=== PATIENT | female | born 1955 | race Caucasian/White ===

== ENCOUNTER 2017-01-23 07:49 | Emergency (ER) | payer MEDICARE, MEDICAID ==
[~2017-01-23] VITALS: Ht 170.2 cm; Wt 77.4 kg
[~2017-01-23 07:49] MED LIST: ALPR1TAB7 PO; CYCL-375 PO; METO10TA3 PO; OMEP40CA52 PO; OXYC-533 PO; OXYC1TAB13 PO; RANI150T7 PO; TIZA4TAB4 PO
--- OUTSIDE RECORDS SUMMARY | 2017-01-23 07:54 | XMS REPORT | Continuity of Care Document ---
Author Author [facility] Organization [facility] Address Unknown Phone Unavailable Support Name Relationship Address Phone SHABBIR FENG DO Caregiver [address] [place] [address] Unavailable ZEV REDDING Caregiver [address] [place] [address] Unavailable MADELIN ANTOINE Next Of Kin [place], [place] [phone] [id number] Insurance Providers Guarantor ThadYves Alissa Address [address] [place] [address] Email DENIED 12-08-16 Payer [facility] Policy Number [id number] Subscriber's Name Yves Oneil Relationship 18 Self Effective Date 16 Expiration Date 17 Payer Medicare Policy Number [id number] Subscriber's Name Yves Oneil Relationship 18 Self Chief Complaint and Reason for Visit Chief Complaint Headache Reason for Visit Head ache Problems Active Problems Medical Problem Onset Date Status Anxiety Unknown Acute Atypical chest pain Unknown Acute Back pain Unknown Acute Back pain Unknown Acute Bilateral hand pain Unknown Acute Bronchitis Unknown Acute Bronchitis Unknown Acute Bronchitis Unknown Acute Cephalgia Unknown Acute Epigastric abdominal pain Unknown Acute Finger Pain Unknown Acute Headache Consistent with Migraine Unknown Acute Headache Consistent with Migraine Unknown Acute Headache Consistent with Migraine Unknown Acute Left against medical advice Unknown Acute Left shoulder pain Unknown Acute MIGRAINE Unknown Acute Patient left without being seen Unknown Acute Pneumonia Unknown Acute Pyroderma ganrenosum Unknown Acute Tobacco abuse Unknown Acute SAE III (vulvar intraepithelial neoplasia III) Unknown Acute Past Problems Medical Problem Onset Date Contact dermatitis Unknown Drug-seeking behavior Unknown Dyspnea Unknown Esophageal spasm Unknown GERD (gastroesophageal reflux disease) Unknown Head ache Unknown Hypokalemia Unknown Migraine Unknown Stress headache Unknown Medications Current Home Medications Medication Dose Units Route Directions Days Qty Instructions Start Date Alprazolam 1 Mg Tablet 1 Mg Oral Three Times A Day as needed for Anxiety 06/13/14 Cyclobenzaprine Hcl 10 Mg Tablet 10 Mg Oral Three Times A Day as needed for Muscle Spasm 5 Days 15 Tablet 12/08/16 Metoclopramide Hcl 10 Mg Tablet 10 Mg Oral Four Times Daily as needed for Nausea &/Or Vomiting 12/08/16 Omeprazole 40 Mg Capsule. 40 Mg Oral Daily 12/08/16 Oxycodone Hcl/Acetaminophen (Oxycodone-Acetaminophen 10-325) 1 Each Tablet 1 Tab Oral Three Times A Day as needed for Pain 06/13/14 Oxycodone Hcl/Acetaminophen (Percocet 10-325 Mg Tablet) 10-325 Tablet 1 Tab Oral Every 4 Hours as needed for Pain 3 Days 18 Tablet Take 1 tablet, by mouth, every 4 hours as needed for pain. 12/08/16 Ranitidine Hcl 150 Mg Tablet 150 Mg Oral Bedtime 12/08/16 Tizanidine Hcl 4 Mg Tablet 4 Mg Oral Three Times A Day 12/08/16 Past Home Medications Medication Directions Ordered Status Albuterol Sulfate (Ventolin Hfa 90 Mcg/Actuation) 18 Gm Hfa.aer.ad, 1 Puff Inhalation Daily as needed for Prn Orders 06/11/16 Discontinued Cholecalciferol (Vitamin D) 1,000 Unit Tablet, 1000 Unit Oral Weekly Discontinued Clindamycin Hcl 300 Mg Capsule, 300 Mg Oral Three Times A Day 08/21/11 Discontinued Ergocalciferol (Vitamin D) 50,000 Unit Capsule, 07747 Unit Oral Weekly Discontinued Esomeprazole Mag Trihydrate (Nexium) 40 Mg Capsule., 40 Mg Oral Daily 02/06 Discontinued Estrogen,Con/M-Progest Acet (Prempro 0.3 Mg/1.5 Mg Tablet) 1 Tab Tablet, 1 Tab Oral Daily 02/06/10 Discontinued Hydrocodone Bit/Acetaminophen (Lortab 10) 1 Udtab Tablet, 1 Udtab Oral Four Times Daily 02/06/10 Discontinued Meloxicam (Mobic) 7.5 Mg Tablet, 7.5 Mg Oral Daily 06/13/12 Discontinued Nortriptyline Hcl 10 Mg Capsule, 10 Mg Oral Daily 03/25/09 Discontinued Oxycodone Hcl (Oxycontin) 10 Mg Tab.sr.12h, 10 Mg Oral Every 4-6 Hours as needed 06/13/12 Discontinued Prednisone 20 Mg Tablet, 20 Mg Oral Daily 10/09/11 Discontinued Prednisone 10 Mg Tablet, 10 Mg Oral Daily 08/21/11 Discontinued Promethazine Hcl (Phenergan) 25 Mg Tablet, 25 Mg Oral as needed 06/13/12 Discontinued Tramadol Hcl 50 Mg Tablet, 50 Mg Oral As Needed 09/17/12 Discontinued Verapamil Hcl 80 Mg Tablet, 80 Mg Oral Three Times A Day 09/17/12 Discontinued Social History Social History Problem Response Recorded Date/Time Onset Date Status Hx Substance Use No 12/08/2016 5:03pm Not Applicable Not Applicable Hx Alcohol Use No 12/08/2016 5:03pm Not Applicable Not Applicable Has the pt used tobacco in the last 12 months Yes 06/11/2015 3:28pm Not Applicable Not Applicable Tobacco Usage smoke 01/31/2016 6:44pm Not Applicable Not Applicable Query Response Start Date Stop Date Smoking Status Current every day smoker Hospital Discharge Instructions No hospital discharge instructions. Plan of Care Discharge Date 12/08/16 5:54pm Disposition 01 DISCHARGED HOME, SELF-CARE Condition at Discharge Improved Instructions/Education Provided General Headache (ED) Prescriptions See Medication Section Referrals ZEV REDDING Order Date: 2 Days Address: [address] [place] [phone] Note: Care Plan and Goals Physician Care Plan Problem: Headache Goal: Follow up with primary care provider Instructions: Take medications and follow care plan as discussed/written Functional Status No functional status results. Allergies, Adverse Reactions, Alerts Allergen Type Severity Reaction Status Last Updated diphenhydramine HCl Adverse Reaction Unknown "INSIDES GO CRAZY" Active 11/25 Dkyzyox-Hoz-Gts Reductase Inhibitor Allergy Unknown Active 12/08/16 Aspirin Allergy Unknown Active 12/08/16 Pseudoephedrine Allergy Unknown Active 12/08/16 Ibuprofen Adverse Reaction Unknown STOMACH UPSET Active 12/08/16 Dextromethorphan Allergy Unknown Active 12/08/16 Nalbuphine Allergy Unknown Active 12/08/16 Diphenhydramine Allergy Mild DRIVES ME NUTS Active 12/08/16 Doxylamine Allergy Unknown Active 12/08/16 Ketorolac Allergy Unknown "I DON'T KNOW" Active 12/08/16 Immunizations Query Response on File Recorded Date/Time Hx Influenza Vaccination No 07/04/15 4:05pm Hx Pneumococcal Vaccination No 07/04/15 4:05pm Hx Tetanus, Diptheria, Pertussis NA - NO SKIN DISRUPTIONS 07/04/15 4:05pm Hx Influenza Vaccination No 07/04/15 4:05pm Hx Tetanus, Diptheria, Pertussis NA - NO SKIN DISRUPTIONS 07/04/15 4:05pm DTaP Vaccine History UNKNOWN 12/08/16 5:03pm Influenza Vaccine Hx NOT REC'D 12/08/16 5:03pm Tdap Vaccine Hx UNKNOWN 01/31/16 6:29pm Vital Signs Acute Vital Signs Vital Response Date/Time Temperature (Fahrenheit) 97.9 deg F (96.8 - 99.1) 12/08/2016 5:54pm Temperature (Calculated Celsius) 36.33838 degrees C (36.0 - 37.3) 12/08/2016 5:54pm Pulse Rate (adult) 66 bpm (60 - 100) 12/08/2016 5:54pm Respiratory Rate 28 breaths/min (10 - 20) 12/08/2016 5:54pm O2 Sat by Pulse Oximetry 96 % (90 - 100) 12/08/2016 5:54pm Blood Pressure 153/75 mm Hg 12/08/2016 5:54pm Blood Pressure 153/75 mm Hg 12/08/2016 5:54pm Height (Feet) 5 feet 12/08/2016 4:03pm Height (Inches) 7.00 inches 12/08/2016 4:03pm Weight (Kilograms) 77.400 kg 12/08/2016 4:03pm Body Mass Index (BMI) 26.0 12/08/2016 4:03pm Results Laboratory Results Test Name Result Units Flags Reference Collection Date/Time Result Date/ Time Comments White Blood Count 7.5 T/MM3 4.5-11.0 10/05/2016 2:25am 10/05/2016 2: 38am Red Blood Count 4.08 M/MM3 4.00-5.20 10/05/2016 2:25am 10/05/2016 2: 38am Hemoglobin 13.6 GM/DL 12-16 10/05/2016 2:25am 10/05/2016 2:38am Hematocrit 40.2 % 36-46 10/05/2016 2:25am 10/05/2016 2:38am Mean Corpuscular Volume 98.5 UM3 80-100 10/05/2016 2:25am 10/05/2016 2: 38am Mean Corpuscular Hemoglobin 33.3 UUG 26-34 10/05/2016 2:2015 2:38am Mean Corpuscular Hemoglobin Concent 33.8 GM/DL 31-37 10/05/2016 2:10/05/2016 2:38am RDW Standard Deviation 44.4 FL 36.9-50.2 10/05/2016 2:10/05/2016 2 :38am Platelet Count 280 T/MM3 130-400 10/05/2016 2:10/05/2016 2:38am Mean Platelet Volume 10.7 UM3 9.4-12.4 10/05/2016 2:10/05/2016 2: 38am Neutrophils (%) (Auto) 53.5 % 33-66 10/05/2016 2:10/05/2016 2: 38am Lymphocytes (%) (Auto) 36.6 % 23-45 10/05/2016 2:10/05/2016 2: 38am Monocytes (%) (Auto) 7.4 % 0-9.0 10/05/2016 2:10/05/2016 2:38am Eosinophils (%) (Auto) 2.1 % 0-4 10/05/2016 2:10/05/2016 2:38am Basophils (%) (Auto) 0.3 % 0-2 10/05/2016 2:10/05/2016 2:38am Immature Granulocyte % (Auto) 0.1 % 0.0-0.5 10/05/2016 2:2015 2:38am Absolute Neutrophils (auto) 4.0 T/MM3 1.8-7.7 10/05/2016 2:2015 2:38am Absolute Lymphocytes (auto) 2.8 T/MM3 1-4.8 10/05/2016 2:2015 2:38am Absolute Monocytes (auto) 0.6 T/MM3 0-0.8 10/05/2016 2:10/05/2016 2:38am Absolute Eosinophils (auto) 0.2 T/MM3 0-0.5 10/05/2016 2:2015 2:38am Absolute Basophils (auto) 0.0 T/MM3 0-0.2 10/05/2016 2:10/05/2016 2:38am Absolute Immature Granulocyte (auto 0.01 T/MM3 0.00-0.03 10/05/2016 2: 2510/05/2016 2:38am Icterus Index < 2 0-7 10/05/2016 2:2510/05/2016 2:44am Chemistry Specimen Hemolysis < 15 0-25 10/05/2016 2:2510/05/2016 2 :44am 0-25: Specimen Exhibited No Hemolysis. Turbidity < 20 0-20 10/05/2016 2:2510/05/2016 2:44am Sodium Level 144 MEQ/L 134-144 10/05/2016 2:2510/05/2016 2:44am Potassium Level 2.8 MEQ/L *L 3.6-5 10/05/2016 2:10/05/2016 2:56am Chloride Level 105 MEQ/L 98-107 10/05/2016 2:2510/05/2016 2:44am Carbon Dioxide Level 25 MEQ/L 22-30 10/05/2016 2:10/05/2016 2: 44am Anion Gap 14 MEQ/L 5-15 10/05/2016 2:2510/05/2016 2:44am Blood Urea Nitrogen 12.0 MG/DL 7-17 10/05/2016 2:10/05/2016 2: 44am Creatinine 0.7 MG/DL 0.7-1.2 10/05/2016 2:10/05/2016 2:44am BUN/Creatinine Ratio 17 RATIO 6-26 10/05/2016 2:10/05/2016 2:44am Glomerular Filtration Rate Calc 85 10/05/2016 2:10/05/2016 2: 44am Glucose Level 108 MG/DL 65-110 10/05/2016 2:2510/05/2016 2:44am Calculated Osmolality 278 MOSM/KG 261-280 10/05/2016 2:10/05/2016 2:44am Calcium Level 9.5 MG/DL 8.4-10.2 10/05/2016 2:2510/05/2016 2:44am Total Bilirubin 0.40 MG/DL 0.20-1.30 10/05/2016 2:2510/05/2016 2: 44am Alkaline Phosphatase 90 U/L 38-126 10/05/2016 2:25am 10/05/2016 2:44am Total Protein 7.1 G/DL 6.3-8.2 10/05/2016 2:25am 10/05/2016 2:44am Albumin 4.2 G/DL 3.5-5.0 10/05/2016 2:25am 10/05/2016 2:44am Globulin 2.9 G/DL 2.4-3.6 10/05/2016 2:25am 10/05/2016 2:44am Albumin/Globulin Ratio 1.4 RATIO 1.1-2.2 10/05/2016 2:25am 10/05/2016 2 :44am Aspartate Amino Transf (AST/SGOT) 20 U/L 14-36 10/05/2016 2:25am 2015 2:44am Alanine Aminotransferase (ALT/SGPT) 25 U/L 9-52 10/05/2016 2:25am 10/05 2:44am Troponin I < 0.012 ng/ml 0-0.12 10/05/2016 2:25am 10/05/2016 2:55am Troponin values with a difference of 55% increase from orginal troponin value represent a true biological DELTA value. (%increase Calc=Orginal Troponin value, divided by subsequent Troponin value, multiplied by 100) Lipase 46 U/L 23-300 10/05/2016 2:25am 10/05/2016 2:44am Name: YVES ONEIL Unit #: [id number] : 1955 Sex: F Admit Date: Loc / Svc: ED Discharge Date: DIAGNOSTIC IMAGING REPORT Report #: [id number] [facility] MAYA Roberts Indication: ITS.REASON: Neck pain for two days, no reported injury PROCEDURE: CT CERVICAL SPINE W/O CONTRAST: Encounter: Initial Comparison: None Technique: Axial CT images through the cervical spine were performed without contrast. Coronal and sagittal reformatted images were also obtained. Automated Exposure Control and Iterative Reconstruction dose reducing techniques were utilized. FINDINGS: The alignment of the cervical spine is normal. Multilevel degenerative changes are present. There is no evidence of acute fracture or subluxation of the cervical spine. The facet joints are well aligned with preservation of the intervertebral disk and facet joints. The atlantoaxial articulation, dens, and upper cervical spine demonstrate no subluxation. There is no evidence of significant spinal stenosis, foraminal compromise, or significant disk herniation. The paraspinal soft tissues and spinal canal appear unremarkable. IMPRESSION: No acute traumatic abnormality of the cervical spine. . Procedures Procedure Status Date Provider(s) Emergency dept visit Completed 09/18/16 Chest x-ray 1 view frontal Completed 10/05/16 Comprehen metabolic panel Completed 10/05/16 Assay of lipase Completed 10/05/16 Assay of troponin quant Completed 10/05/16 Complete cbc w/auto diff wbc Completed 10/05/16 Electrocardiogram tracing Completed 10/05/16 Hydrate iv infusion add-on Completed 10/05/16 Hydrate iv infusion add-on Completed 10/05/16 Ther/proph/diag inj iv push Completed 10/05/16 Tx/pro/dx inj new drug addon Completed 10/05/16 Emergency dept visit Completed 10/05/16 [id number] ITEM OR SERVICE Completed 10/05/16 184200"INJECTION, HYDROMORPHONE, UP TO 4 MG" Completed 10/05/16 [id number]"INJECTION, METOCLOPRAMIDE HCL, UP TO 10 MG" Completed 10/05/16 779474"INFUSION, NORMAL SALINE SOLUTION , 1000 CC" Completed 10/05/16 Emergency dept visit Completed 11/09/16 Encounters Encounter Location Arrival/Admit Date Discharge/Depart Date Attending Provider Departed Emergency Room [facility] 12/08/16 3:53pm 12/08/16 5: 54pm SHABBIR FENG DO Departed Emergency Room [facility] 11/09/16 6:52pm 11/09/16 9: 05pm VINNY SINGH DO Departed Emergency Room [facility] 10/05/16 1:27am 10/05/16 4: 37am ZANE AMADO MD Departed Emergency Room [facility] 09/18/16 11:02am 09/18/16 11: 53am FEBRUARYVINNY DO Recent Diagnosis
[2017-01-23 08:11] VITALS: Ht 170.2 cm; Wt 77.4 kg
--- NOTE | 2017-01-23 08:35 | ERPDOC ---
Departure Disposition Decision Date: Jan 23, 2017 Disposition Decision Time: 12:55 Disposition: 01 DISCHARGED HOME, SELF-CARE Impression Impression Impression: Primary Impression: Epigastric abdominal pain Severity: Moderate Condition: Stable Seen By: Physician only Referrals: ZEV REDDING (Family) Patient Instructions: Abdominal Pain (ED) Problems/Meds/Labs Reviewed?: Yes Medications reviewed and manag: Yes Additional Instructions: Follow-up with your primary medical physician for further evaluation Follow up care ordered?: Yes Mental Status: Alert, Oriented HPI - Abdominal Pain General Chief Complaint: Abdominal Pain Stated Complaint: ABD PAIN Time Seen by Provider: 08:33 Source: patient History/Exam Limitations: no limitations HPI - Abdominal Pain Initial Comments Patient is a 61-year-old female presents emergency room for evaluation of abdominal pain. Patient states she started having epigastric abdominal pain yesterday quickly ramped up to 8 or 9 out of 10, patient states she was evaluated by her primary medical physician a month ago for gallbladder issues including CT scan and what sounds like a hiatus scan were all negative. Patient is taking Prilosec and other srbw-ahw-hwvgxzr medications. Despite that patient developed severe abdominal pain so decided today to present to the ER for evaluation. Occurred At: home Onset: Gradual, Getting worse Duration: 12-24 hrs Pain Scale: Now & Worst: 9/10 Location: epigastric Radiation: back Allergies: Coded Allergies: diphenhydramine (Verified Allergy, Mild, DRIVES ME NUTS, 01/23/17) Ysfvkhy-Xld-Qzd Reductase Inhibitor (Verified Allergy, Unknown, 01/23/17) aspirin (Verified Allergy, Unknown, 01/23/17) dextromethorphan (Verified Allergy, Unknown, 01/23/17) doxylamine (Verified Allergy, Unknown, 01/23/17) ketorolac (Verified Allergy, Unknown, "I DON'T KNOW", 01/23/17) nalbuphine (Verified Allergy, Unknown, 01/23/17) pseudoephedrine (Verified Allergy, Unknown, 01/23/17) diphenhydramine HCl (Verified Adverse Reaction, Unknown, "INSIDES GO CRAZY ", 01/23/17) ibuprofen (Verified Adverse Reaction, Unknown, STOMACH UPSET, 01/23/17) Past History Patient Surgical History Ovarian Cyst removal hernia repair hysterectomy Appendectomy Past Medical History Metabolic: hypercholesterolemia Respiratory: pneumonia GI: GERD Neurological: migraines Musculoskeletal: back pain Psychological: anxiety, bipolar Surgical History General: appendix, hernia Reproductive/: , hysterectomy Family History Family PMH: FOUND: [place], diabetes, hypertension Vaccines Hx Influenza Vaccination: No Hx Pneumococcal Vaccination: No Social History Does patient use chewing tobac: No Second Hand Exposure: No Substance Use Type: does not use Alcohol Intake: none Marital Status: Sexuality: male partner Household Members: significant other Review of Systems Constitutional Constitutional: appetite decrease, DENIES: chills, dizziness, fever, weakness Eyes Vision: DENIES: double vision, loss of visual bey ENMT Sinuses: DENIES: congestion, rhinorrhea Mouth/Throat: DENIES: scratchy throat, sore throat Cardiovascular Cardiac: DENIES: chest pain, dyspnea on exertion Pulmonary Respiratory: DENIES: cough, dyspnea, sputum, tachypnea GI Upper Abdomen: nausea, pain, DENIES: vomiting Lower Abdomen: DENIES: constipation, diarrhea, pain General: DENIES: frequency, urgency Musculoskeletal General: DENIES: cramps, pain, weakness Integumentary Skin: DENIES: color change, itching, rash Endocrine Endocrine: DENIES: heat/cold intolerance Hematologic/Lymphatic Hematologic/Lymphatic: DENIES: anemia Physical Exam General General Nourishment: well nourished, well developed General Body Habitus: well groomed Vitals and Pain First Documented Vital Signs Date Time Temp Pulse Resp B/P Pulse Ox O2 Delivery O2 Flow Rate FiO2 01/23/17 08:11 97.9 68 18 188/108 98 Room Air Weight: Kilograms: 77.400 Height (feet): 5 Height (inches): 7.00 Triage Pain Scale: RN VS reviewed by Provider: Yes Eyes (brief) Eyes Brief: found: EOMI ENMT (brief) ENMT Brief: FOUND: mucosa moist, normal dentition, NOT FOUND: nasal erythema, pharnyx erythema, tonsillar deviation Neck (brief) Neck: NOT FOUND: adenopathy, spasm, tenderness Respiratory (brief) Respiratory: FOUND: clear all bey, equal bilaterally, NOT FOUND: rales, wheezes Cardiovascular (brief) Cardiac: FOUND: regular rate, regular rhythm Capillary Refill: <2 sec Abdomen Palpation: FOUND: soft, tender (epigastric tenderness), NOT FOUND: Obturator sign, Psoas sign, hepatomegaly, involuntary guarding, rebound, splenomegaly, voluntary guarding Auscultation: FOUND: normoactive Integumentary (brief) Integumentary Brief: FOUND: dry, pink, warm, NOT FOUND: rash Neurologic (brief) Neurological Brief: FOUND: CN w/o gross def to obs, motor-no gross deficits, sensory-no gross deficits Psychiatric (brief) Psychiatric Brief: FOUND: alert, oriented Differential Diagnoses Considering: Appendicitis, Aortic Dissection, Biliary Colic, Bowel Obstruction , Cholecystitis, Constipation, Crohn's, Diverticulitis, Gastroenteritis, GERD, IBS, Ileus, Ovarian Cyst, Ovarian Torsion, Pancreatitis, Renal Colic, Ulcer, Ulcerative Colitis, UTI, Volvulus Progress Results/Orders Orders Procedure Category Date Status Time Iv Lock (Ed Only) EDM 01/23/17 Transmitted 08:33 Nothing By Mouth (Ed EDM 01/23/17 Transmitted Only) 08:33 Cbc W/Auto LAB 01/23/17 Complete Diff-Reflex Manual 08:33 Cmp - Comprehensive LAB 01/23/17 Complete Metabolic 08:33 Lipase LAB 01/23/17 Complete 08:33 Ua, Dip Wreflex LAB 01/23/17 Complete Microsc & Industrial Analyst 08:33 Troponin I W LAB 01/23/17 Complete Hemolysis Index 08:33 Normal Saline (Normal PHA 01/23/17 Complete Saline Iv) 08:45 Hydromorphone PHA 01/23/17 Complete (Dilaudid) 08:45 Metoclopramide PHA 01/23/17 Complete (Reglan Inj) 08:45 G.I. Cocktail PHA 01/23/17 Complete (/Maalox/Lidocaine 08:45 Ct Abd/Pelvis CT 01/23/17 Resulted W/Contrast Only 09:51 Iohexol (Omnipaque) PHA 01/23/17 Complete 10:12 Normal Saline (Ns) PHA 01/23/17 Complete 10:12 Saline Flush (Iv PHA 01/23/17 Complete Flush) 10:[address] 01/23/17 Resulted 11:12 Iohexol (Omnipaque) PHA 01/23/17 Complete 11:33 Normal Saline (Ns) PHA 01/23/17 Complete 11:33 Saline Flush (Iv PHA 01/23/17 Complete Flush) 11:34 Hyoscyamine (Levsin) PHA 01/23/17 Complete 13:00 Lab Results Laboratory Tests Test 4/17/17 09:02 01/23/17 09:12 White Blood Count 6.8T/MM3 Red Blood Count 3.93M/MM3 Hemoglobin 13.1GM/DL Hematocrit 39.2% Mean Corpuscular Volume 99.7UM3 Mean Corpuscular Hemoglobin 33.3UUG Mean Corpuscular Hemoglobin Concent 33.4GM/DL RDW Standard Deviation 48.2FL Platelet Count 304T/MM3 Mean Platelet Volume 10.0UM3 Immature Granulocyte % (Auto) 0.1% Neutrophils (%) (Auto) 53.3% Lymphocytes (%) (Auto) 36.0% Monocytes (%) (Auto) 7.8% Eosinophils (%) (Auto) 2.4% Basophils (%) (Auto) 0.4% Absolute Immature Granulocyte (auto 0.01T/MM3 Absolute Neutrophils (auto) 3.6T/MM3 Absolute Lymphocytes (auto) 2.4T/MM3 Absolute Monocytes (auto) 0.5T/MM3 Absolute Eosinophils (auto) 0.2T/MM3 Absolute Basophils (auto) 0.0T/MM3 Turbidity < 20 Sodium Level 148MEQ/L Potassium Level 3.7MEQ/L Chloride Level 111MEQ/L Carbon Dioxide Level 23MEQ/L Anion Gap 14MEQ/L Blood Urea Nitrogen 9.0MG/DL Creatinine 0.7MG/DL Glomerular Filtration Rate Calc 85 BUN/Creatinine Ratio 13RATIO Glucose Level 92MG/DL Calculated Osmolality 283MOSM/KG Calcium Level 9.2MG/DL Total Bilirubin 0.50MG/DL Icterus Index < 2 Aspartate Amino Transf (AST/SGOT) 24U/L Alanine Aminotransferase (ALT/SGPT) 28U/L Alkaline Phosphatase 102U/L Troponin I < 0.012ng/ml Total Protein 7.1G/DL Albumin 4.0G/DL Globulin 3.1G/DL Albumin/Globulin Ratio 1.3RATIO Lipase 53U/L Chemistry Specimen Hemolysis 38 Urine Collection Type Voided-not cc-midstr Urine Color Yellow Urine Turbidity Clear Urine pH 5.0 Urine Specific [place] <=1.005 Urine Protein Negative Urine Glucose (UA) Negative Urine Ketones Negative Urine Blood Negative Urine Nitrite Negative Urine Bilirubin Negative Urine Urobilinogen 0.2EU/DL Urine Leukocyte Esterase Negative Urinalysis Comment Microscopic not ind. Medications Current ED Medications Sodium Chloride (Normal Saline IV) 1,000 ml @ 999 mls/hr Q1H1M ONCE IV Last administered on 01/23/17 08:54; Start 01/23/17 at 08:45; Stop 01/23/17 at 09:45 ; Status DC Hydromorphone HCl (Dilaudid) 0.5 mg O ONCE IV Last administered on 01/23/17 08:59; Start 01/23/17 at 08:45; Stop 01/23/17 at 08:46; Status DC Metoclopramide HCl (REGLAN Inj) 10 mg O ONCE IV Last administered on 08:57; Start 01/23/17 at 08:45; Stop 01/23/17 at 08:46; Status DC Pharmacy Profile Note (/Maalox/ Lidocaine Soln) 30 ml O ONCE PO Last administered on 01/23/17 08:55; Start 01/23/17 at 08:45; Stop 01/23/17 at 08:46 ; Status DC Iohexol 1 bottle 1 bottle STK-MED ONCE .ROUTE ; Start 01/23/17 at 10:12; Stop at 10:13; Status DC Sodium Chloride (NS) 100 ml @ As Directed STK-MED ONCE .ROUTE ; Start 01/23/17 at 10:12; Stop 01/23/17 at 10:13; Status DC Sodium Chloride (Iv Flush) 10 ml STK-MED ONCE .ROUTE ; Start 01/23/17 at 10:12; Stop 01/23/17 at 10:13; Status DC Iohexol 1 bottle 1 bottle STK-MED ONCE .ROUTE ; Start 01/23/17 at 11:33; Stop at 11:34; Status DC Sodium Chloride (NS) 100 ml @ As Directed STK-MED ONCE .ROUTE ; Start 01/23/17 at 11:33; Stop 01/23/17 at 11:34; Status DC Sodium Chloride (Iv Flush) 10 ml STK-MED ONCE .ROUTE ; Start 01/23/17 at 11:34; Stop 01/23/17 at 11:35; Status DC Hyoscyamine (Levsin) 0.25 mg O ONCE IV Last administered on 01/23/17 13:00; Start 01/23/17 at 13:00; Stop 01/23/17 at 13:01; Status DC CT CT #1: CT: Abd/Pelvis IV contrast Interpretation: Abnormal, Discussed w/ Radiologist (subtle irregularity of the aorta would recommend dedicated aortal study) CT #2: CT: Aorta IV contrast Interpretation: Normal, Discussed w/ Radiologist (no signs of dissection) YANNICK REN MD Jan 23, 2017 08:35
[2017-01-23] MEDS ORDERED: NORMAL SALINE 1,000 ML IV ONE (08:45)
[2017-01-23] MEDS ORDERED: METOCLOPRAMIDE 10mg/2ml INJECTION IV ONE (08:45)
[2017-01-23] MEDS ORDERED: G.I. COCKTAIL 30ml PO ONE (08:45)
[2017-01-23] MEDS ORDERED: HYDROMORPHONE 2mg/ml INJECTION IV ONE (08:45)
--- NOTE | 2017-01-23 08:50 | NUR ---
IVL IV LOCK STARTED ON FIRST ATTEMPT AND BLOOD DRAWN FOR LAB.
--- NOTE | 2017-01-23 08:59 | NUR ---
MEDS REGLAN GIVEN IV. GI COCKTAIL GIVEN. DILAUDID GIVEN IV FOR PAIN.
[2017-01-23 09:08] LABS: BASOPHILS % (AUTO) 0.4 % (0-2); EOSINOPHILS # (AUTO) 0.2 T/MM3 (0-0.5); EOSINOPHILS % (AUTO) 2.4 % (0-4); HCT - HEMATOCRIT 39.2 % (36-46); HGB - HEMOGLOBIN 13.1 GM/DL (12-16); IMMATURE GRANULOCYTE # (AUTO) 0.01 T/MM3 (0.00-0.03); IMMATURE GRANULOCYTE % (AUTO) 0.1 % (0.0-0.5); LYMPHOCYTES # (AUTO) 2.4 T/MM3 (1-4.8); MEAN CORPUSCULAR HGB 33.3 UUG (26-34); MEAN CORPUSCULAR HGB CONC(MCHC 33.4 GM/DL (31-37); MEAN CORPUSCULAR VOLUME 99.7 UM3 (80-100); MONOCYTES # (AUTO) 0.5 T/MM3 (0-0.8); MONOCYTES % (AUTO) 7.8 % (0-9.0); NEUTROPHILS #(AUTO)-ABSOLUTE 3.6 T/MM3 (1.8-7.7); NEUTROPHILS % (AUTO) 53.3 % (33-66); RED BLOOD COUNT 3.93 M/MM3 (4.00-5.20); WBC - WHITE BLOOD COUNT 6.8 T/MM3 (4.5-11.0)
[2017-01-23 09:17] LABS: BLOOD, URINE NEGATIVE (NEGATIVE); COLOR,URINE YELLOW (YELLOW); LEUKOCYTE ESTERASE ,URINE NEGATIVE (NEGATIVE); NITRITE,URINE NEGATIVE (NEGATIVE); UROBILINOGEN,URINE 0.2 EU/DL (NORMAL)
[2017-01-23 09:19] LABS: ALBUMIN/GLOBULIN RATIO 1.3 RATIO (1.1-2.2); ALKALINE PHOSPHATASE 102 U/L (38-126); ALT (SGPT) 28 U/L (9-52); ANION GAP 14 MEQ/L (5-15); AST (SGOT) 24 U/L (14-36); BUN/CREATININE RATIO 13 RATIO (6-26); CALCIUM 9.2 MG/DL (8.4-10.2); CHLORIDE 111 MEQ/L (98-107); CO2 - CARBON DIOXIDE 23 MEQ/L (22-30); CREATININE 0.7 MG/DL (0.7-1.2); GLOMERULAR FILTRATION RATE 85; GLUCOSE 92 MG/DL (65-110); LIPASE 53 U/L (23-300); POTASSIUM 3.7 MEQ/L (3.6-5); SODIUM 148 MEQ/L (134-144); TOTAL PROTEIN 7.1 G/DL (6.3-8.2)
[2017-01-23] MEDS ORDERED: IOHEXOL 300 MG/ML 100ml INJECTION ONE (10:12)
[2017-01-23] MEDS ORDERED: SALINE FLUSH 10ml SYRINGE ONE ×2 (10:12→11:34)
[2017-01-23] MEDS ORDERED: NORMAL SALINE 100 ML ONE ×2 (10:12→11:33)
--- NOTE | 2017-01-23 10:15 | NUR ---
CT PT. TO CT PER CART FOR CT OF ABD.
--- NOTE | 2017-01-23 10:28 | NUR ---
CT PT. RETURNS FROM CT.
--- NOTE | 2017-01-23 11:17 | DI ---
EXAM: CT abdomen pelvis with contrast. DATE: LOCATION OF DICTATION: [place] HISTORY: ITS.REASON: severe epigastric/periumbilical abdominal pain out of proportion COMPARISON: No prior studies are available for comparison TECHNIQUE: CT images were obtained of the abdomen and pelvis utilizing 85 mL of Omnipaque 300. Coronal and sagittal reformations were utilized. Automated Exposure Control and Iterative Reconstruction dose reducing techniques were utilized. CT ABDOMEN PELVIS FINDINGS: LUNG BASES: There is mild atelectasis and should the lung bases. Small calcified granuloma within the left lung base. LIVER: Unremarkable. SPLEEN: Unremarkable. GALLBLADDER: Unremarkable. PANCREAS: Unremarkable. ADRENAL GLANDS: Unremarkable. KIDNEYS: Unremarkable. AORTA: There is moderate soft and calcified atherosclerotic plaque demonstrated about the infrarenal abdominal aorta and iliac arteries. This has significantly progressed when compared with the prior CT scan seven years earlier. There is a sliver of contrast along the periphery of the aorta and a linear density traversing the infrarenal abdominal aorta. An infrarenal abdominal aortic dissection is not entirely excluded. LYMPH NODES: Unremarkable. STOMACH BOWEL LOOPS: Mild diverticulosis about the sigmoid colon. No evidence for diverticulitis. Small hiatal hernia suggested. PERITONEAL CAVITY: There is no abdominal or pelvic inflammatory mass or ascites. CT PELVIS URINARY BLADDER: Unremarkable. UTERUS: Unremarkable OSSEOUS STRUCTURES: There is iyyz-ri-[id number] spondylosis of the thoracolumbar spine. No suspicious or destructive osseous lesions. IMPRESSION: Impression: 1. No inflammatory mass, lymphadenopathy, or ascites. 2. Moderate soft and calcified plaque about the infrarenal abdominal aorta and iliac arteries without evidence for high-grade stenosis. There is a sliver of contrast along the periphery and linear density traversing the infrarenal abdominal aorta. Infrarenal abdominal aortic dissection is not entirely excluded. Follow-up CT angiogram may be utilized to further evaluate. Dr. Araya was and informed of the findings on 01/23/2017 at 11:00 AM. .
--- NOTE | 2017-01-23 11:25 | NUR ---
CT CALLED CT TO LET THEM KNOW ABOUT THE ORDER FOR CT OF THE AORTA.
[2017-01-23] MEDS ORDERED: IOHEXOL 350 MG/ML 100ml INJECTION ONE (11:33)
--- NOTE | 2017-01-23 11:40 | NUR ---
CT PT. RETURNS TO CT.
--- NOTE | 2017-01-23 11:51 | NUR ---
CT PT. RETURNS FROM CT.
--- NOTE | 2017-01-23 11:54 | NUR ---
STATUS PT. STATES HER PAIN IS STARTING TO RETURN IN HER BACK.
--- NOTE | 2017-01-23 12:26 | DI ---
EXAM: CTA AORTA LOCATION OF DICTATION: [place] HISTORY: ITS.REASON: irregularity of abdominal CT scan was requested by radiology COMPARISON: No prior studies available for comparison. TECHNIQUE: Multiple contiguous axial images were obtained of the chest with contrast utilizing 85 mL of Omnipaque [address] angiogram protocol. Coronal, sagittal, and MIP reformatted images were utilized. Automated Exposure Control and Iterative Reconstruction dose reducing techniques were utilized. FINDINGS: The heart size is normal.There is no pericardial effusion. The visualized portions of the thoracic aorta and major branch vessels of the aortic arch fills with contrast homogenously and are unremarkable. There are no central pulmonary artery filling defects to suggest pulmonary artery embolism. There are few tiny reticulonodular densities within the upper free of right and left lungs greater in the right lower lobe which may reflect areas of atelectasis or pneumonitis. There is no axillary, hilar, or mediastinal lymphadenopathy. The visualized bones are unremarkable. IMPRESSION: 1. No evidence for pulmonary or some. 2. Subtle reticulonodular/groundglass opacities about the periphery of the lungs, greater on the right, possibly representing atelectasis or atypical pneumonia. .
[2017-01-23] MEDS ORDERED: HYOSCYAMINE 0.5 MG/ML INJECTION IV ONE (13:00)
--- NOTE | 2017-01-23 13:00 | NUR ---
STATUS PT. STATES HER PAIN IS GOING BACK UP AND RATES IT A 7-8.
[2017-01-23 13:27] VITALS: BP 190/85; PULSE 68; RESP 20; TEMP 97.9; O2SAT 99
== END 2017-01-23 13:27 | disposition home or self-care (01) ==
LOC: ED 07:49
DX: R10.13 Epigastric pain (principal); R11.0 Nausea
CPT/HCPCS: 71275; 74175; 74177; 80053; 81003; 83690; 84484; 85025; 96361; 96374; 96375; 99284; J1170; J1980; J2765; J7030; J7050; J7999; Q9967

== ENCOUNTER 2017-02-19 12:31 | Emergency (ER) | payer MEDICARE, MEDICAID ==
[~2017-02-19] VITALS: Ht 170.2 cm; Wt 75.6 kg
[~2017-02-19 12:31] MED LIST changes: -CYCL-375 PO; -OXYC-533 PO; -TIZA4TAB4 PO
--- OUTSIDE RECORDS SUMMARY | 2017-02-19 12:34 | XMS REPORT | Continuity of Care Document ---
Author Author [facility] Organization [facility] Address Unknown Phone Unavailable Support Name Relationship Address Phone ZEV REDDING Caregiver [address] [place] [address] Unavailable YANNICK REN MD Caregiver [address] [place] [address] [place] [address] Unavailable [place] [address] C Insurance Providers Guarantor KayeYves anaya Address [address] [place] [address] Email DENIED 01-23-17 Payer [facility] Policy Number [id number] Subscriber's Name Yves Oneil Relationship 18 Self Effective Date 17 Expiration Date 17 Payer Medicare Policy Number [id number] Subscriber's Name Yves Oneil Relationship 18 Self Chief Complaint and Reason for Visit Chief Complaint Abdominal Pain Reason for Visit [id number] Problems Active Problems Medical Problem Onset Date [...] A Day as needed for Anxiety 06/13/14 Metoclopramide Hcl 10 Mg Tablet 10 Mg Oral Four Times Daily as needed for Nausea &/Or Vomiting 12/08/16 Omeprazole 40 Mg Capsule. 40 Mg Oral Daily 12/08/16 Oxycodone Hcl/Acetaminophen (Percocet 10-325 Mg Tablet) 10-325 Tablet 1 Tab Oral Every 4 Hours as needed for Pain 3 Days 18 Tablet Take 1 tablet, by mouth, every 4 hours as needed for pain. 12/08/16 Ranitidine Hcl 150 Mg Tablet 150 Mg Oral Bedtime 12/08/16 Past Home Medications Medication Directions Ordered Status Albuterol Sulfate (Ventolin Hfa 90 Mcg/Actuation) 18 Gm Hfa.aer.ad, 1 Puff Inhalation Daily as needed for Prn Orders 06/11/16 Discontinued Cholecalciferol (Vitamin D) 1,000 Unit Tablet, 1000 Unit Oral Weekly Discontinued Clindamycin Hcl 300 Mg Capsule, 300 Mg Oral Three Times A Day 08/21/11 Discontinued Ergocalciferol (Vitamin D) 50,000 Unit Capsule, 10982 Unit Oral Weekly Discontinued Esomeprazole Mag Trihydrate [...] Onset Date Status Hx Substance Use No 01/23/2017 8:15am Not Applicable Not Applicable Hx Alcohol Use No 01/23/2017 8:15am Not Applicable Not Applicable Has the pt used tobacco in the last 12 months Yes 06/11/2015 3:28pm Not Applicable Not Applicable Tobacco Usage smoke 01/31/2016 6:44pm Not Applicable Not Applicable Query Response Start Date Stop Date Smoking Status Current every day smoker Hospital Discharge Instructions No hospital discharge instructions. Plan of Care Discharge Date 01/23/17 1:27pm Disposition 01 DISCHARGED HOME, SELF-CARE Condition at Discharge Stable Instructions/Education Provided Abdominal Pain (ED) Prescriptions See Medication Section Referrals ZEV REDDING Address: [address] [place] [address] Additional Instructions/Education Follow-up with your primary medical physician for further evaluation Care Plan and Goals Physician Care Plan Problem: Epigastric abdominal pain Goal: Follow up with primary care provider Instructions: Take medications and follow care plan as discussed/written Functional Status No functional status results. Allergies, Adverse Reactions, Alerts Allergen Type Severity Reaction Status Last Updated diphenhydramine HCl Adverse Reaction Unknown "INSIDES GO CRAZY" Active Nrxcwvb-Jqe-Vow Reductase Inhibitor Allergy Unknown Active 01/23/17 Aspirin Allergy Unknown Active 01/23/17 Pseudoephedrine Allergy Unknown Active 01/23/17 Ibuprofen Adverse Reaction Unknown STOMACH UPSET Active 01/23/17 Dextromethorphan Allergy Unknown Active 01/23/17 Nalbuphine Allergy Unknown Active 01/23/17 Diphenhydramine Allergy Mild DRIVES ME NUTS Active 01/23/17 Doxylamine Allergy Unknown Active 01/23/17 Ketorolac Allergy Unknown "I DON'T KNOW" Active 01/23/17 Immunizations Query Response on File Recorded Date/Time Hx Influenza Vaccination No 07/04/15 4:05pm Hx Pneumococcal Vaccination No 07/04/15 4:05pm Hx Tetanus, Diptheria, Pertussis NA - NO SKIN DISRUPTIONS 07/04/15 4:05pm Hx Influenza Vaccination No 07/04/15 4:05pm Hx Tetanus, Diptheria, Pertussis NA - NO SKIN DISRUPTIONS 07/04/15 4:05pm DTaP Vaccine History UNKNOWN 01/23/17 8:15am Influenza Vaccine Hx NOT REC'D 01/23/17 8:15am Tdap Vaccine Hx UNKNOWN 01/31/16 6:29pm Vital Signs Acute Vital Signs Vital Response Date/Time Temperature (Fahrenheit) 97.9 deg F (96.8 - 99.1) 01/23/2017 1:27pm Temperature (Calculated Celsius) 36.44369 degrees C (36.0 - 37.3) 01/23/2017 1:27pm Pulse Rate (adult) 68 bpm (60 - 100) 01/23/2017 1:27pm Respiratory Rate 20 breaths/min (10 - 20) 01/23/2017 1:27pm O2 Sat by Pulse Oximetry 99 % (90 - 100) 01/23/2017 1:27pm Blood Pressure 190/85 mm Hg 01/23/2017 1:27pm Height (Feet) 5 feet 01/23/2017 8:11am Height (Inches) 7.00 inches 01/23/2017 8:11am Weight (Kilograms) 77.400 kg 01/23/2017 8:11am Body Mass Index (BMI) 26.0 01/23/2017 8:11am Results Laboratory Results Test Name Result Units Flags Reference Collection Date/Time Result Date/ Time Comments White Blood Count 6.8 T/MM3 4.5-11.0 01/23/2017 9:02am 01/23/2017 9: 08am Red Blood Count 3.93 M/MM3 L 4.00-5.20 01/23/2017 9:02am 01/23/2017 9: 08am Hemoglobin 13.1 GM/DL 12-16 01/23/2017 9:02am 01/23/2017 9:08am Hematocrit 39.2 % 36-46 01/23/2017 9:0201/23/2017 9:08am Mean Corpuscular Volume 99.7 UM3 80-100 01/23/2017 9:0201/23/2017 9: 08am Mean Corpuscular Hemoglobin 33.3 UUG 26-34 01/23/2017 9:02am 2016 9:08am Mean Corpuscular Hemoglobin Concent 33.4 GM/DL 31-37 01/23/2017 9:0201/23/2017 9:08am RDW Standard Deviation 48.2 FL 36.9-50.2 01/23/2017 9:0201/23/2017 9 :08am Platelet Count 304 T/MM3 130-400 01/23/2017 9:02am 01/23/2017 9:08am Mean Platelet Volume 10.0 UM3 9.4-12.4 01/23/2017 9:02am 01/23/2017 9: 08am Neutrophils (%) (Auto) 53.3 % 33-66 01/23/2017 9:02am 01/23/2017 9: 08am Lymphocytes (%) (Auto) 36.0 % 23-45 01/23/2017 9:02am 01/23/2017 9: 08am Monocytes (%) (Auto) 7.8 % 0-9.0 01/23/2017 9:02am 01/23/2017 9:08am Eosinophils (%) (Auto) 2.4 % 0-4 01/23/2017 9:02am 01/23/2017 9:08am Basophils (%) (Auto) 0.4 % 0-2 01/23/2017 9:02am 01/23/2017 9:08am Immature Granulocyte % (Auto) 0.1 % 0.0-0.5 01/23/2017 9:02am 2016 9:08am Absolute Neutrophils (auto) 3.6 T/MM3 1.8-7.7 01/23/2017 9:02am 2016 9:08am Absolute Lymphocytes (auto) 2.4 T/MM3 1-4.8 01/23/2017 9:02am 2016 9:08am Absolute Monocytes (auto) 0.5 T/MM3 0-0.8 01/23/2017 9:02am 01/23/2017 9:08am Absolute Eosinophils (auto) 0.2 T/MM3 0-0.5 01/23/2017 9:02am 2016 9:08am Absolute Basophils (auto) 0.0 T/MM3 0-0.2 01/23/2017 9:02am 01/23/2017 9:08am Absolute Immature Granulocyte (auto 0.01 T/MM3 0.00-0.03 01/23/2017 9: 02am 01/23/2017 9:08am Icterus Index < 2 0-7 01/23/2017 9:02am 01/23/2017 9:19am Chemistry Specimen Hemolysis 38 H 0-25 01/23/2017 9:0201/23/2017 9: 19am 26-70: Specimen Exhibited Slight Hemolysis - can falsely elevate K (Potassium) and Urine Protein. Turbidity < 20 0-20 01/23/2017 9:0201/23/2017 9:19am Sodium Level 148 MEQ/L H 134-144 01/23/2017 9:0201/23/2017 9:19am Potassium Level 3.7 MEQ/L 3.6-5 01/23/2017 9:0201/23/2017 9:19am Chloride Level 111 MEQ/L H 98-107 01/23/2017 9:0201/23/2017 9:19am Carbon Dioxide Level 23 MEQ/L 22-30 01/23/2017 9:0201/23/2017 9: 19am Anion Gap 14 MEQ/L 5-15 01/23/2017 9:0201/23/2017 9:19am Blood Urea Nitrogen 9.0 MG/DL 7-01/23/2017 9:0201/23/2017 9:19am Creatinine 0.7 MG/DL 0.7-1.2 01/23/2017 9:0201/23/2017 9:19am BUN/Creatinine Ratio 13 RATIO 6-01/23/2017 9:0201/23/2017 9:19am Glomerular Filtration Rate Calc 85 01/23/2017 9:0201/23/2017 9: 19am Glucose Level 92 MG/DL 65-110 01/23/2017 9:0201/23/2017 9:19am Calculated Osmolality 283 MOSM/KG H 261-280 01/23/2017 9:022016 9:19am Calcium Level 9.2 MG/DL 8.4-10.2 01/23/2017 9:0201/23/2017 9:19am Total Bilirubin 0.50 MG/DL 0.20-1.30 01/23/2017 9:0201/23/2017 9: 19am Alkaline Phosphatase 102 U/L 38-126 01/23/2017 9:0201/23/2017 9: 19am Total Protein 7.1 G/DL 6.3-8.2 01/23/2017 9:0201/23/2017 9:19am Albumin 4.0 G/DL 3.5-5.0 01/23/2017 9:0201/23/2017 9:19am Globulin 3.1 G/DL 2.4-3.6 01/23/2017 9:0201/23/2017 9:19am Albumin/Globulin Ratio 1.3 RATIO 1.1-2.2 01/23/2017 9:0201/23/2017 9 :19am Aspartate Amino Transf (AST/SGOT) 24 U/L 14-36 01/23/2017 9:022016 9:19am Alanine Aminotransferase (ALT/SGPT) 28 U/L 9-52 01/23/2017 9:0201/23 9:19am Troponin I < 0.012 ng/ml 0-0.12 01/23/2017 9:01/23/2017 9:30am Troponin values with a difference of 55% increase from orginal troponin value represent a true biological DELTA value. (%increase Calc=Orginal Troponin value, divided by subsequent Troponin value, multiplied by 100) Lipase 53 U/L 23-300 01/23/2017 9:0201/23/2017 9:19am Urine Collection Type VOIDED-NOT CC-MIDSTR 01/23/2017 9:2016 9:17am Urine Color YELLOW YELLOW 01/23/2017 9:1201/23/2017 9:17am Urine Turbidity CLEAR CLEAR 01/23/2017 9:1201/23/2017 9:17am Urine Specific Dequincy <=1.005 L 1.015-1.025 01/23/2017 9:122016 9:17am Urine pH 5.0 5.0-8.0 01/23/2017 9:1201/23/2017 9:17am Urine Leukocyte Esterase NEGATIVE NEGATIVE 01/23/2017 9:122016 9:17am Urine Nitrite NEGATIVE NEGATIVE 01/23/2017 9:1201/23/2017 9:17am Urine Protein NEGATIVE NEGATIVE 01/23/2017 9:1201/23/2017 9:17am Urine Glucose (UA) NEGATIVE NEGATIVE 01/23/2017 9:1201/23/2017 9: 17am Urine Ketones NEGATIVE NEGATIVE 01/23/2017 9:12am 01/23/2017 9:17am Urine Urobilinogen 0.2 EU/DL NORMAL 01/23/2017 9:12am 01/23/2017 9: 17am Urine Bilirubin NEGATIVE NEGATIVE 01/23/2017 9:12am 01/23/2017 9: 17am Urine Blood NEGATIVE NEGATIVE 01/23/2017 9:12am 01/23/2017 9:17am Urinalysis Comment MICROSCOPIC NOT IND. 01/23/2017 9:12am 2016 9:17am Name: YVES ONEIL Unit #: [id number] : 1955 Sex: F Admit Date: Loc / Svc: ED Discharge Date: DIAGNOSTIC IMAGING REPORT Report #: [id number] [facility] [place] [place] EXAM: CTA AORTA LOCATION OF DICTATION: [place] HISTORY: ITS.REASON: irregularity of abdominal CT scan was requested by radiology COMPARISON: No prior studies available for comparison. TECHNIQUE: Multiple contiguous axial images were obtained of the chest with contrast utilizing 85 mL of Omnipaque [address] angiogram protocol. Coronal, sagittal, and MIP reformatted images were utilized. Automated Exposure Control and Iterative Reconstruction dose reducing techniques were utilized. FINDINGS: The heart size is normal.There is no pericardial effusion. The visualized portions of the thoracic aorta and major branch vessels of the aortic arch fills with contrast homogenously and are unremarkable. There are no central pulmonary artery filling defects to suggest pulmonary artery embolism. There are few tiny reticulonodular densities within the upper free of right and left lungs greater in the right lower lobe which may reflect areas of atelectasis or pneumonitis. There is no axillary, hilar, or mediastinal lymphadenopathy. The visualized bones are unremarkable. IMPRESSION: 1. No evidence for pulmonary or some. 2. Subtle reticulonodular/groundglass opacities about the periphery of the lungs, greater on the right, possibly representing atelectasis or atypical pneumonia. . Technique: Multiple contiguous axial images were obtained of the chest, MR, and pelvis with contrast using CT angiogram protocol. Coronal, sagittal, and MIP reformatted images were utilized. Findings: There is no evidence for abdominal aortic dissection. The previous noted suspected area of contrast about the periphery correlates with calcifications on the noncontrast study.. No intimal flap is demonstrated on the CT angiogram study. There is mild to moderate hyperechoic plaque demonstrated within the abdominal aorta and iliac arteries. The celiac, superior mesenteric, and inferior mesenteric arteries are patent. The right and left renal arteries are widely patent. No high-grade stenosis demonstrated within the iliac or femoral arteries. Visualized abdominal viscera is within normal limits. . Procedures Procedure Status Date Provider(s) Emergency dept visit Completed 11/09/16 Ct head/brain w/o dye Completed 12/08/16 Ct neck spine w/o dye Completed 12/08/16 Ther/proph/diag inj iv push Completed 12/08/16 Tx/pro/dx inj new drug addon Completed 12/08/16 Emergency dept visit Completed 12/08/16 908418"INJECTION, HYDROMORPHONE, UP TO 4 MG" Completed 12/08/16 [id number]"INJECTION, ONDANSETRON HYDROCHLORIDE, PER 1 MG" Completed 12/08/16 159030"INFUSION, NORMAL SALINE SOLUTION , 1000 CC" Completed 12/08/16 Encounters Encounter Location Arrival/Admit Date Discharge/Depart Date Attending Provider Departed Emergency Room [facility] 01/23/17 7:49am 01/23/17 1: 27pm YANNICK REN MD Departed Emergency Room [facility] 12/08/16 3:53pm 12/08/16 5: 54pm SHABBIR FENG DO Departed Emergency Room [facility] 11/09/16 6:52pm 11/09/16 9: 05pm VINNY SINGH DO Recent Diagnosis
[2017-02-19 12:40] VITALS: Ht 170.2 cm; Wt 75.6 kg
[2017-02-19] MEDS ORDERED: OXYC-533 PO (12:53)
[2017-02-19] MEDS ORDERED: ALBU18HF2 INH (12:53)
[2017-02-19] MEDS ORDERED: G.I. COCKTAIL 30ml PO ONE (13:15)
[2017-02-19] MEDS ORDERED: ORPHENADRINE 60mg/2ml INJECTION IM ONE (13:15)
[2017-02-19] MEDS ORDERED: HYDROMORPHONE 2mg/ml INJECTION IM ONE (13:15)
--- NOTE | 2017-02-19 13:37 | NUR ---
BACK FROM XRAY
--- NOTE | 2017-02-19 13:38 | ERPDOC ---
Departure Disposition Decision Date: February 19, 2017 Disposition Decision Time: : Disposition: 01 DISCHARGED HOME, SELF-CARE Impression Impression Impression: Primary Impression: Low back pain Chronicity: acute Back pain laterality: midline Sciatica presence: without sciatica Qualified Codes: M54.5 - Low back pain Additional Impression: Epigastric abdominal pain Severity: Moderate Condition: Stable Seen By: Mid-level only Referrals: ZEV REDDING (Family) Patient Instructions: Abdominal Pain (ED), Acute Low Back Pain (ED) Problems/Meds/Labs Reviewed?: Yes Medications reviewed and manag: Yes Additional Instructions: Follow up with your primary care provider on Monday as scheduled. Continue with your home medications and start the Carafate as prescribed. Follow up care ordered?: Yes Mental Status: Alert, Oriented Scripts Sucralfate (Carafate) 1 Gm Tablet 1 G PO ACHS, #40 TAB 0 Refills Take 1 tablet, by mouth, 4 times a day (Before EACH meal and at BEDTIME). Prov: LESLIE PETIT Coni MORALES 02/19/17 HPI - Back Pain General Chief Complaint: Back Pain or Injury Stated Complaint: BACK PAIN,N/V, BURNING IN ARMS AND LEGS Time Seen by Provider: 12:39 Source: patient Exam Limitations: no limitations HPI - Back Pain Initial Comments Monday evening, two days ago she started having some pain in the epigastric region followed by a night of nausea/vomiting. The vomiting has subsided but she is still having a burning abdominal pain. Has not had a good BM in several days. Tried to take a stool softener but she vomited after taking it. Did try a fleets enema this morning but had no results. She also woke up this morning with pain in the middle of her lower back. Has not had any known fall or injury. Has had pain like this in the past. Does take Percocet at home for pain but it is not helping. Occurred At: home Onset/Timing: Gradual Duration: 12-24 hrs Severity/Quality: moderate, burning Location: lumbar spine (and epigastric region) Method of Injury/Context: unknown Associated Sypmtoms: lower back pain, other (Had nausea/vomiting two days ago) , DENIES: fever, loss of bladder control, loss of bowel control, muscle spasms, numbness in legs/feet, sensory/motor loss, tingling in legs/feet, weakness Hx of Similar Symptoms: No Allergies: Coded Allergies: diphenhydramine (Verified Allergy, Mild, DRIVES ME NUTS, 02/19/17) Hbcffas-Nca-Vqg Reductase Inhibitor (Verified Allergy, Unknown, 02/19/17) aspirin (Verified Allergy, Unknown, 02/19/17) dextromethorphan (Verified Allergy, Unknown, 02/19/17) doxylamine (Verified Allergy, Unknown, 02/19/17) ketorolac (Verified Allergy, Unknown, "I DON'T KNOW", 02/19/17) nalbuphine (Verified Allergy, Unknown, 02/19/17) pseudoephedrine (Verified Allergy, Unknown, 02/19/17) diphenhydramine HCl (Verified Adverse Reaction, Unknown, "INSIDES GO CRAZY ", 02/19/17) ibuprofen (Verified Adverse Reaction, Unknown, STOMACH UPSET, 02/19/17) Past History Patient Surgical History Ovarian Cyst removal hernia repair hysterectomy Appendectomy Past Medical History Metabolic: hypercholesterolemia Respiratory: pneumonia GI: GERD Neurological: migraines Musculoskeletal: back pain Psychological: anxiety, bipolar Surgical History General: appendix, hernia Reproductive/: , hysterectomy Family History Family PMH: FOUND: ID, diabetes, hypertension Vaccines Hx Influenza Vaccination: No Hx Pneumococcal Vaccination: No Social History Does patient use chewing tobac: No Second Hand Exposure: No Substance Use Type: does not use Alcohol Intake: none Marital Status: Sexuality: male partner Household Members: significant other Review of Systems Constitutional Constitutional: DENIES: chills, dizziness, fatigue, fever, weakness Cardiovascular Cardiac: DENIES: chest pain, orthopnea Rhythm/Rate: DENIES: irregular beat, palpitations Pulmonary Respiratory: DENIES: cough, dyspnea, sputum, tachypnea GI Upper Abdomen: nausea, pain, vomiting Lower Abdomen: DENIES: constipation, diarrhea, pain General: DENIES: dysuria, frequency, urgency Integumentary Skin: DENIES: rash Neurological General: DENIES: headache, numbness, tingling, weakness Physical Exam General General Nourishment: well nourished, well developed, appears stated age, no acute distress, adult General Body Habitus: well groomed Vitals and Pain First Documented Vital Signs Date Time Temp Pulse Resp B/P Pulse Ox O2 Delivery O2 Flow Rate FiO2 02/19/17 12:40 98.2 94 20 214/104 97 Room Air Weight: Kilograms: 75.600 Height (feet): 5 Height (inches): 7.00 Triage Pain Scale: RN VS reviewed by Provider: Yes Normal Exams: Neck: Full range of motion, without adenopathy, JVD, bruits or thyromegaly Chest/Resp: Clear all bey, with good airflow, and symmetry bilaterally CV: Regular rate and rhythm, without murmur or gallop, Pulses 2+ all extremities, capillary refill, <2 seconds all ext., no pedal edema noted Abdomen: Bowel sounds positive, soft, non-tender, non-distended, no hepatosplenomegaly, masses or bruits noted Lymphatic: No lymphadenopathy, or lymphedema noted Integumentary: No rashes, hives, or bruising noted Neurologic: Patient is alert, and oriented Psychiatric: Patient exhibits, appropriate attention, emotion and affect Musculoskeletal (brief) Musculoskeletal Brief: FOUND: tenderness (Moderate TTP over the lumbar spine- diffuse, no point tenderness. ) Differential Diagnoses Considering: Fracture, Lumbar Sprain, Lumbar Strain, Pyelonephritis, UTI Progress Results/Orders Orders Procedure Category Date Status Time Kub W/Upright RAD 02/19/17 Taken Hydromorphone PHA 02/19/17 Complete (Dilaudid) 13:15 G.I. Cocktail PHA 02/19/17 Complete (/Maalox/Lidocaine 13:15 Orphenadrine (Norflex) PHA 02/19/17 Complete 13:15 Medications Current ED Medications Hydromorphone HCl (Dilaudid) 1 mg O ONCE IM Last administered on 02/19/17 13: 13; Start 02/19/17 at 13:15; Stop 02/19/17 at 13:16; Status DC Pharmacy Profile Note (/Maalox/ Lidocaine Soln) 30 ml O ONCE PO Last administered on 02/19/17 13:12; Start 02/19/17 at 13:15; Stop 02/19/17 at 13:16 ; Status DC Orphenadrine Citrate (Norflex) 60 mg O ONCE IM Last administered on 02/19/17 13:14; Start 02/19/17 at 13:15; Stop 02/19/17 at 13:16; Status DC Progress Progress KUB does not have indication of obstruction. Pain is improved after medications given. She has had a CT scan in the last month as well as an EGD and colonoscopy in the last 2 months. When i rechecked on her she was drinking a Dr Pepper. Will go ahead and dismiss to home. She is scheduled to see her PCP on Monday. Xray Xray : Reason for Exam: abdominal pain Xray: KUB Upright Interpretation: Normal LESLIE PETIT APRN February 19, 2017 13:38
[2017-02-19] MEDS ORDERED: SUCR1TAB20 PO (14:18)
[2017-02-19 14:25] VITALS: BP 174/74; PULSE 77; RESP 16; TEMP 98.2; O2SAT 96
--- NOTE | 2017-02-20 07:59 | DI ---
Indication: ITS.REASON: abdominal pain, constipation PROCEDURE: KUB W/UPRIGHT: Encounter: Initial Comparison: None Findings: The visualized lung bases are clear. There is no free air on the upright view. The bowel gas pattern is nonobstructive and nonspecific. Gas is seen in nondilated small and large bowel to the level of the rectum. Moderate stool is seen throughout the colon. The bony structures show mild degenerative change and scoliosis in the spine. Impression: Nonobstructive nonspecific bowel gas pattern. .
== END 2017-02-19 14:25 | disposition home or self-care (01) ==
LOC: ED 12:31
DX: R10.13 Epigastric pain (principal); M54.5 Low back pain; R11.2 Nausea with vomiting, unspecified
CPT/HCPCS: 74020; 96372; 99283; J1170; J2360; J7999